=== PATIENT | female | born 1945 | race Caucasian/White ===

== ENCOUNTER 2018-01-25 09:09 | Inpatient (IN) ==
--- NOTE | 2018-01-25 09:19 | Emergency Department Note ---
Disposition Clinical Impression: Pneumonia, UTI (urinary tract infection) Disposition: Admitted As Inpatient Condition: Good Reasons to Return/Additional Instructions: Your blood pressure was normal today but please follow-up with your primary care provider for periodic rechecks General Adult HPI - General Chief complaint: ED General Medical Stated complaint: coughing and gagging Time Seen by Provider: 01/25/18 09:10 Source: EMS Mode of arrival: ambulatory Limitations: physical limitation Nursing Notes Reviewed: Yes Vital Signs Reviewed: Yes - History of Present Illness HPI Narrative: pt with reported coughing and gagging this Am. No report of fever, vomiting or other complaints. 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 Pain Scale: 0 Consistency: intermittent Improves with: nothing Worsens with: nothing - Related Data Home Medications Medication Instructions Recorded Confirmed Aspirin [Lo-Dose Aspirin EC] 81 mg PO DAILY 01/25/18 01/25/18 Atorvastatin [Lipitor] 40 mg PO HS 01/25/18 01/25/18 Clopidogrel [Plavix] 75 mg PO DAILY 01/25/18 01/25/18 Lactulose [Enulose] 20 gm PO DAILY 01/25/18 01/25/18 Oxybutynin [Ditropan] 5 mg PO BID 01/25/18 01/25/18 PHENobarbital [Phenobarbital] 81 mg PO DAILY 01/25/18 01/25/18 raNITIdine HCl [Zantac] 150 mg PO DAILY 01/25/18 01/25/18 Allergies Allergy/AdvReac Type Severity Reaction Status Date / Time Cephalosporins Allergy Hives Verified 01/25/18 09:11 Clofexamide Allergy Hives Verified 01/25/18 09:11 codeine Allergy Hives Verified 01/25/18 09:11 phenytoin Allergy Hives Verified 01/25/18 09:11 propoxyphene Allergy Hives Verified 01/25/18 09:11 Limitations: ROS unobtainable due to patients medical condition ([facility] staff reported coughing and gagging and wheezing today.) Past Medical History - Past Medical History Source: nursing notes reviewed Physical Exam - General Limitations: physical limitation General appearance: alert - Head Head exam: atraumatic, normocephalic - Eye Eye exam: Present: normal appearance, PERRL, EOMI - ENT ENT exam: normal oropharynx, other (Dry mucous membranes) - Neck Neck exam: Present: normal inspection, full ROM, trachea midline - Chest Chest inspection: Present: normal inspection, symmetric chest wall rise - Respiratory Respiratory exam: Present: normal lung sounds bilaterally - Cardiovascular Cardiovascular exam: Present: regular rate, normal rhythm, normal heart sounds - Abdominal Exam Abdominal exam: Present: soft, Non-Tender. Absent: tenderness, distention, guarding, rebound, rigidity - Extremities Exam Extremities exam: Present: normal inspection, full ROM, other (poor turgor. heel protectors in place appears to have extermity contractures as well). Absent: tenderness, pedal edema - Back Exam Back exam: Present: normal inspection - Neurological Exam Neurological exam: Present: alert - Skin Skin exam: Present: warm, dry, intact, other (poor turgor) Medical Decision Making - [facility] Narrative Medical decision making narrative: Case was discussed with Dr. Cardona who graciously accepted admission of the hospital - Lab Data Lab results reviewed: Yes I reviewed the patient's lab results. - Radiology Data Radiology results reviewed: Yes I reviewed the patient's radiology results.
[2018-01-25] MEDS ORDERED: 0.9 % Sodium Chloride 1,000 ML ONE (09:26)
[2018-01-25] MEDS ORDERED: 0.9 % Sodium Chloride 500 ML IVC ONE (09:27)
[2018-01-25 09:29] LABS: Bilirubin,Urine Negative (Negative); Blood,Urine Small (Negative); Clarity,Urine Cloudy (Clear); Color,Urine Yellow (Yellow); Glucose,Urine (UA) Normal (Normal); Ketones,Urine Trace mg/dL (Negative); Leukocyte Esterase,Urine Moderate (Negative); Nitrite,Urine Positive (Negative); PH,Urine 5.5 pH Units (5.0-8.0); Protein,Urine 100 mg/dL (Neg-Trace); Specific Gravity,Urine >= 1.030 (1.010-1.025); Urobilinogen,Urine Normal (Normal)
[2018-01-25 09:37] LABS: Basophils % 0.2 %; Eosinophils # 0.2 K/mcL (0.0-0.6); Eosinophils % 1.2 %; Hemoglobin 12.5 g/dL (11.5-15.4); Immature Granulocytes % 0.7 % (0-4); Lymphocytes # 0.7 K/mcL (0.6-4.6); Lymphocytes % 3.3 %; Mean Corpuscular HGB Conc 32.1 g/dL (31.6-35.5); Mean Corpuscular Hemoglobin 31.6 pg (28.0-33.3); Mean Corpuscular Volume 98.5 fL (83.0-100.0); Monocytes # 0.3 K/mcL (0.0-1.3); Monocytes % 1.6 %; Neutrophils # 18.6 K/mcL (1.6-8.9); Platelet Count 311 K/mcL (140-400); Red Blood Count 3.96 M/mcL (3.82-4.97); Red Cell Distribution Width 15.1 % (11.5-14.5)
[2018-01-25 09:38] LABS: Bacteria,Urine Many per hpf (None-Few); Calcium Oxalate Crystals,Urine Present; Granular Casts,Urine Few per lpf (None Seen); Mucus,Urine Few (Few); RBC,Urine 15-30 per hpf (0-3); Renal Epithelial Cells,Urine Many per hpf (None-Few); Squamous Epithelial Cell,Urine Many per lpf (None-Few); WBC,Urine TNTC per hpf (0-3)
[2018-01-25] MEDS ORDERED: Levofloxacin 750 MG/150 ML 750 MG/150 ML BAG IVPB ONE (09:49)
[2018-01-25 09:53] LABS: Calcium 9.3 mg/dL (8.6-10.3); Potassium 3.1 mEq/L (3.5-5.1)
[2018-01-25] MEDS ORDERED: Naloxone 0.4 MG/ML INJ IVP PRN (10:21)
[2018-01-25] MEDS ORDERED: 0.9 % Sodium Chloride 1,000 ML IVC SCH (10:30)
--- NOTE | 2018-01-25 16:51 | Internal Med History&Physical ---
Date of Encounter: 01/25/18 Time of Encounter: 16:25 Assessment and Plan (1) Severe sepsis Current visit: Yes Status: Acute Presumably from UTI and/or pneumonia. Pressure sores do not visually appear significantly infected. She was given IV Levaquin in emergency room. Will recheck labs in a.m. (2) Acute renal failure Current visit: Yes Status: Acute Suspect secondary to dehydration. IV fluids have been ordered. Repeat labs will be done in a.m. Qualifiers: Acute renal failure type: unspecified Qualified Code(s): N17.9 - Acute kidney failure, unspecified (3) Hypokalemia Current visit: Yes Status: Acute Supplemental potassium has been ordered. Recheck labs in a.m. (4) Pneumonia Current visit: Yes Status: Acute Levaquin was given in emergency room. Reassess in a.m. Qualifiers: Pneumonia type: due to unspecified organism Laterality: right Lung location: lower lobe of lung Qualified Code(s): J18.1 - Lobar pneumonia, unspecified organism (5) UTI (urinary tract infection) Current visit: Yes Status: Acute She has been given Levaquin as per above. Will continue this and await urine culture report. Qualifiers: Urinary tract infection type: site unspecified Hematuria presence: with hematuria Qualified Code(s): N39.0 - Urinary tract infection, site not specified; R31.9 - Hematuria, unspecified (6) Hyperglycemia Current visit: Yes Status: Acute Significance uncertain since nonfasting. Will check hemoglobin A1c in a.m. (7) Pressure sore of left ischium, stage 3 Current visit: Yes Status: Acute Will use Santyl and gentamicin (8) Pressure ulcer of coccygeal region, stage 3 Current visit: Yes Status: Acute Will use Santyl and gentamicin Internal Medicine - H&P: HPI Chief complaint: Coughing and gagging Admitted From: Emergency Dept Plans for Post Hospital Care: Home History of present illness: Ms. Mcclure is a 72 year old female who was [facility] a local [facility] after staff reported she had coughing and gagging. There was no report of fever or vomiting. She was evaluated in emergency room and found to have acute renal failure, hypokalemia, and leukocytosis with left shift. Chest x-ray showed medial right lung base opacity consistent with pneumonia. She was admitted to [facility] floor for ongoing care needs. She is nonverbal and cannot give any history. Past Med Surg Social Fam HX - Past Medical History Medical history: cardiomyopathy, GERD, seizures, other Additional medical history: chronic pain, carotid stenosis, constipation, mild id, bladder spasms, hx subdural hematoma, - Past Surgical History Additional surgical history: right femur fx, nasal sx, - Social History Smoking Status: Never smoker Smokeless Tobacco Status: No Alcohol use: none Drug use: none Internal Medicine - H&P: Meds Aspirin [Lo-Dose Aspirin EC] 81 mg PO DAILY 01/25/18 [History] Atorvastatin [Lipitor] 40 mg PO HS 01/25/18 [History] Clopidogrel [Plavix] 75 mg PO DAILY 01/25/18 [History] Lactulose [Enulose] 20 gm PO DAILY 01/25/18 [History] Oxybutynin [Ditropan] 5 mg PO BID 01/25/18 [History] PHENobarbital [Phenobarbital] 81 mg PO DAILY 01/25/18 [History] raNITIdine HCl [Zantac] 150 mg PO DAILY 01/25/18 [History] 3 Allergy/AdvReac Type Severity Reaction Status Date / Time Cephalosporins Allergy Hives Verified 01/25/18 09:11 Clofexamide Allergy Hives Verified 01/25/18 09:11 codeine Allergy Hives Verified 01/25/18 09:11 phenytoin Allergy Hives Verified 01/25/18 09:11 propoxyphene Allergy Hives Verified 01/25/18 09:11 All Systems PM: A 10-system review of systems was performed and is negative for pertinent findings except as documented above in the HPI. Review of systems: Unobtainable from the patient since she has significant MRDD and is nonverbal. - Constitutional Vitals: Temp Pulse Resp BP Pulse Ox 98.4 F 109 18 115/64 96 01/25/18 09:12 01/25/18 12:05 01/25/18 12:05 01/25/18 12:05 01/25/18 12:05 Exam: Gen.: She is a frail female lying in bed who appears slightly dyspneic and agitated. HEENT: Head appears atraumatic and normocephalic. Eyes: Her gaze is conjugate. EOMI is noted random observation. There is no scleral icterus. Mouth: Mucosa is dry. She appears edentulous. Neck: There is no thyromegaly or adenopathy noted. Heart: Regular without murmurs gallops or ectopics Lungs: She has diminished breath sounds diffusely but no wheezes or crackles are heard. Abdomen: Bowel sounds are diminished. Abdomen is nontender to palpation. Extremities: She is wearing heel protectors and thick socks which I did not remove. 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 There is no edema of her lower legs. Neurologic: Mental status: She does not respond meaningfully to voice or light touch. Cranial nerves: EOMI noted from random observation. She does not make significant facial movements or follow commands otherwise. Motor: Her left arm appears to have flexion contracture at the elbow and wrist. She moves her right arm well randomly. No further neurologic testing is attempted. Skin: She has a ~12 mm stage III ulcer on her left ischial area and ~ 12 mm stage ulcer over her coccyx. There is minimal exudate seen in the ulcers with no significant surrounding erythema. There are scars from presumed previously healed pressure sores on left and right pelvic area pressure points. Skin is warm and dry otherwise. Internal Med - H&P Results - Labs CBC & Chem 7: 01/25/18 09:31 01/25/18 09:31
[2018-01-25] MEDS: 0.45 % Sodium Chloride w/KCl 20 MEQ/1,000 ML MLS IVC SCH (17:35)
[2018-01-26] MEDS: 0.45 % Sodium Chloride w/KCl 20 MEQ/1,000 ML MLS IVC SCH ×3 (03:47→23:32)
[2018-01-26] MEDS: *HR* Enoxaparin 40 MG/0.4 ML SYRINGE SQ SCH (06:34)
[2018-01-26 06:49] LABS: Basophils % 0.1 %; Eosinophils # 0.4 K/mcL (0.0-0.6); Hemoglobin 10.1 g/dL (11.5-15.4); Immature Granulocytes % 0.5 % (0-4); Lymphocytes # 0.7 K/mcL (0.6-4.6); Lymphocytes % 5.3 %; Mean Corpuscular HGB Conc 32.6 g/dL (31.6-35.5); Mean Corpuscular Volume 95.1 fL (83.0-100.0); Mean Platelet Volume 10.9 fL (9.4-12.4); Monocytes # 0.3 K/mcL (0.0-1.3); Neutrophils # 11.4 K/mcL (1.6-8.9); Platelet Count 237 K/mcL (140-400); Red Blood Count 3.26 M/mcL (3.82-4.97); Red Cell Distribution Width 14.9 % (11.5-14.5); Segmented Neutrophils % 89.1 %
[2018-01-26] MEDS: Gentamicin Oint 15 GM TUBE TP SCH ×2 (07:01→10:00)
[2018-01-26 07:31] LABS: BUN/Creatinine Ratio 53 (6-26); Blood Urea Nitrogen 43 mg/dL (8-23); Calcium 8.7 mg/dL (8.6-10.3); Carbon Dioxide 21 mEq/L (23-29); Chloride 108 mEq/L (98-107); Glucose 90 mg/dL (70-105); Osmolality,Calculated 290 (280-300); Potassium 3.9 mEq/L (3.5-5.1); Sodium 135 mEq/L (136-145); eGFR For African Americans > 60 (> 60); eGFR For Non-African Americans > 60 (> 60)
--- NOTE | 2018-01-26 10:54 | Internal Med Progress Note ---
Date of Encounter: 01/26/18 Time of Encounter: 10:45 - Assessment and plan (1) Severe sepsis Current Visit: Yes Status: Acute Assessment and plan: January 26. Improved. Continue antibiotics and lactobacillus. Anticipate discharge tomorrow if stable. (2) Acute renal failure Current Visit: Yes Status: Acute Assessment and plan: January 26. Resolving. Creatinine decreased to 0.8 with estimated GFR greater than 60. Continue IV fluids. Qualifiers: Acute renal failure type: unspecified Qualified Code(s): N17.9 - Acute kidney failure, unspecified (3) Hypokalemia Current Visit: Yes Status: Acute Assessment and plan: January 26. Resolved. Continue present regimen. (4) Pneumonia Current Visit: Yes Status: Acute Assessment and plan: January 26. Continue antibiotics and lactobacillus. Qualifiers: Pneumonia type: due to unspecified organism Laterality: right Lung location: lower lobe of lung Qualified Code(s): J18.1 - Lobar pneumonia, unspecified organism (5) UTI (urinary tract infection) Current Visit: Yes Status: Acute Assessment and plan: January 26. Urine culture report from 01/23/2018 reviewed. Escherichia coli shows resistance to Levaquin. Will continue Levaquin for pneumonia and add Septra for UTI. Qualifiers: Urinary tract infection type: site unspecified Hematuria presence: with hematuria Qualified Code(s): N39.0 - Urinary tract infection, site not specified; R31.9 - Hematuria, unspecified (6) Hyperglycemia Current Visit: Yes Status: Acute Assessment and plan: January 26. Hemoglobin A1c pending. FBS normal today at 90 (7) Pressure sore of left ischium, stage 3 Current Visit: Yes Status: Acute Assessment and plan: January 26. Continue Santyl and gentamicin. (8) Pressure ulcer of coccygeal region, stage 3 Current Visit: Yes Status: Acute Assessment and plan: January 26. Continue Santyl and gentamicin. (9) Anemia Current Visit: Yes Status: Acute Assessment and plan: January 26. Hemoglobin decreased to 10.1. Will order anemia testing in a.m. Qualifiers: Anemia type: unspecified type Qualified Code(s): D64.9 - Anemia, unspecified - Subjective Interval history: January 26. No new problems have arisen. - Constitutional Vitals: Temp Pulse Resp BP Pulse Ox 97.6 F 103 19 155/74 96 01/26/18 05:31 01/26/18 05:31 01/26/18 05:31 01/26/18 05:31 01/26/18 05:31 Exam: She is resting comfortably in bed. She is being fed by a worker from the [facility]. I reviewed her medications and lab results. Internal Medicine: Result - Labs CBC & Chem 7: 01/26/18 06:39 01/26/18 06:39 Labs: Short CBC 01/26/18 Range/Units 06:39 WBC 12.8 H (4.3-11.1) K/mcL Hgb 10.1 L D (11.5-15.4) g/dL Hct 31.0 L (35.3-44.9) % Plt Count 237 (140-400) K/mcL Neutrophils # 11.4 H (1.6-8.9) K/mcL BMP 01/26/18 06:39 Sodium 135 L Potassium 3.9 D Chloride 108 H Carbon Dioxide 21 L BUN 43 H Creatinine 0.81 Glucose 90 Calcium 8.7 - Impressions Impressions Chest X-Ray 01/26/18 08:12 IMPRESSION: Stable right basilar opacity which may represent a developing infiltrate. Follow-up to resolution is recommended. D/ / Morelia Ziegler MD / Morelia Ziegler MD Interpreting Provider: Morelia Ziegler MD Consult Discharge Plan - Plan Additional Instructions: Your blood pressure was normal today but please follow-up with your primary care provider for periodic rechecks Referrals: Elissa Carpio MD [Primary Care Provider] - 1 week
[2018-01-26] MEDS ORDERED: Levofloxacin 500 MG/100 ML 500 MG/100 ML BAG IVPB SCH (11:00)
[2018-01-26 11:06] LABS: Estimated Average Glucose 108 mg/dl; Hemoglobin A1C 5.4 %
[2018-01-26] MEDS: Sulfamethoxazole/Trimeth DS 1 EACH TABLET PO SCH ×2 (12:56→20:13)
[2018-01-26] MEDS: Lactobacillus 1 EACH CAP.SPRINK PO SCH (20:13)
[2018-01-27 05:48] LABS: Basophils % 0.1 %; Eosinophils # 0.2 K/mcL (0.0-0.6); Eosinophils % 2.5 %; Hematocrit 34.2 % (35.3-44.9); Hemoglobin 11.4 g/dL (11.5-15.4); Immature Granulocytes % 0.4 % (0-4); Lymphocytes # 1.4 K/mcL (0.6-4.6); Lymphocytes % 17.1 %; Mean Corpuscular HGB Conc 33.3 g/dL (31.6-35.5); Mean Corpuscular Hemoglobin 30.8 pg (28.0-33.3); Mean Corpuscular Volume 92.4 fL (83.0-100.0); Mean Platelet Volume 11.2 fL (9.4-12.4); Monocytes # 0.3 K/mcL (0.0-1.3); Monocytes % 4.1 %; Platelet Count 282 K/mcL (140-400); Red Cell Distribution Width 14.3 % (11.5-14.5); Segmented Neutrophils % 75.8 %
[2018-01-27] MEDS: *HR* Enoxaparin 40 MG/0.4 ML SYRINGE SQ SCH (06:01)
[2018-01-27 06:06] LABS: BUN/Creatinine Ratio 39 (6-26); Blood Urea Nitrogen 24 mg/dL (8-23); Carbon Dioxide 21 mEq/L (23-29); Chloride 100 mEq/L (98-107); Glucose 90 mg/dL (70-105); Osmolality,Calculated 270 (280-300); Potassium 3.9 mEq/L (3.5-5.1); Sodium 128 mEq/L (136-145); eGFR For African Americans > 60 (> 60); eGFR For Non-African Americans > 60 (> 60)
[2018-01-27 07:01] VITALS: BP 159/59
[2018-01-27] MEDS: Sulfamethoxazole/Trimeth DS 1 EACH TABLET PO SCH (07:58)
[2018-01-27] MEDS: Lactobacillus 1 EACH CAP.SPRINK PO SCH (07:58)
[2018-01-27 09:24] LABS: % Iron Saturation 21 % (15-50); Ferritin 112 ng/ml (10-120); Iron 64 mcg/dL (50-170); Transferrin 215 mg/dL (203-362)
--- NOTE | 2018-01-27 09:38 | Discharge Summary ---
Orders not resulted at time of discharge: Pending orders 01/27/18 05:23 Folate AM 0400 Vitamin B12 AM 0400 Date of Encounter: 01/27/18 Time of Encounter: 09:25 - Discharge Diagnosis (1) Severe sepsis Priority: Primary Status: Resolved (2) Acute renal failure Priority: Secondary Status: Resolved Qualifiers: Acute renal failure type: unspecified Qualified Code(s): N17.9 - Acute kidney failure, unspecified (3) Hypokalemia Priority: Secondary Status: Resolved (4) Pneumonia Priority: Secondary Status: Acute Qualifiers: Pneumonia type: due to unspecified organism Laterality: right Lung location: lower lobe of lung Qualified Code(s): J18.1 - Lobar pneumonia, unspecified organism (5) UTI (urinary tract infection) Priority: Secondary Status: Acute Qualifiers: Urinary tract infection type: site unspecified Hematuria presence: with hematuria Qualified Code(s): N39.0 - Urinary tract infection, site not specified; R31.9 - Hematuria, unspecified (6) Hyperglycemia Priority: Secondary Status: Resolved (7) Pressure sore of left ischium, stage 3 Priority: Secondary Status: Chronic (8) Pressure ulcer of coccygeal region, stage 3 Priority: Secondary Status: Chronic (9) Anemia Priority: Secondary Status: Acute Qualifiers: Anemia type: unspecified type Qualified Code(s): D64.9 - Anemia, unspecified Hospital course: Ms. Mcclure is a 72 year old female who was sent to emergency room from a local [facility] after staff reported she had coughing and gagging. There was no report of fever or vomiting. She was evaluated in emergency room and found to have acute renal failure, hypokalemia, and leukocytosis with left shift. Chest x-ray showed medial right lung base opacity consistent with pneumonia. She was admitted to [facility] floor for ongoing care needs. Initial orders were written by the emergency room physician. I saw her on January 25 and performed a history and physical. She was started on IV Levaquin. I added lactobacillus. Septra DS was added on January 26 for added spectrum coverage. Urine culture returned showing Morganella with sensitivity to Septra. She will continue with antibiotic and probiotic for 3 additional days for UTI and pneumonia. She had clinical improvement with WBC normalizing to 8.0 and resolution of left shift by time of discharge. She remained afebrile. Hemoglobin decrease to 10.1 on 01/26/2018. Anemia testing showed iron 64, transferrin saturation 21%, transferrin 215, and ferritin 112. B12 and folate level are pending at time of discharge. She was treated with topical Santyl and gentamicin for her pressure sores. This will be continued at discharge. A zinc level is pending at time of discharge. Vitamin D level returned slightly low at 24. Her PCP can determine further treatment needs Hemoglobin A1c returns satisfactory at 5.4%. On January 27 she was stable for discharge back to the [facility] where she will follow with Dr. Carpio. I talked to a caregiver from the [facility] about possible G-tube placement. Further interventions can be determined by her legal guardian and PCP. - Time Spent with Patient Total time spent providing and/or coordinating discharge services: - Discharge Medications Prescriptions: Lactobacillus [Culturelle] 1 each PO BID #6 cap.sprink levoFLOXacin [Levaquin] 500 mg PO DAILY #3 tablet Sulfamethoxazole/Trimeth DS [Bactrim Ds] 1 each PO BID #6 tablet Home Medications: Atorvastatin [Lipitor] 40 mg PO HS 01/25/18 [History] Clopidogrel [Plavix] 75 mg PO DAILY 01/25/18 [History] Lactulose [Enulose] 20 gm PO DAILY 01/25/18 [History] PHENobarbital [Phenobarbital] 81 mg PO DAILY 01/25/18 [History] Aspirin [Lo-Dose Aspirin EC] 81 mg PO Q48H #0 01/27/18 [Rx] Collagenase Oint [Santyl] 1 appl TP DAILY tube 01/27/18 [Rx] Gentamicin Oint [Garamycin] 1 appl TP DAILY tube 01/27/18 [Rx] Lactobacillus [Culturelle] 1 each PO BID #6 cap.sprink 01/27/18 [Rx] Sulfamethoxazole/Trimeth DS [Bactrim Ds] 1 each PO BID #6 tablet 01/27/18 [Rx] levoFLOXacin [Levaquin] 500 mg PO DAILY #3 tablet 01/27/18 [Rx] Allergies/Adverse Reactions: 3 Allergy/AdvReac Type Severity Reaction Status Date / Time Cephalosporins Allergy Hives Verified 01/25/18 09:11 Clofexamide Allergy Hives Verified 01/25/18 09:11 codeine Allergy Hives Verified 05/30/18 09:11 phenytoin Allergy Hives Verified 01/25/18 09:11 propoxyphene Allergy Hives Verified 01/25/18 09:11 Date of admission: 01/25/18 17:11 Primary care physician: Elissa Carpio Consults: 01/25/18 19:41 Consult to Sidewalk Repairer [CONS] Routine Reason for SW Consult: Discharge Planning - Constitutional Vitals: Temp Pulse Resp BP Pulse Ox 99.2 F 88 18 159/59 98 01/27/18 06:59 01/27/18 06:59 01/27/18 06:59 01/27/18 06:59 01/27/18 06:59 - Patient Status Disposition: Home, Self-Care Condition: Good Overall status at discharge: patient is progressing back to baseline - Discharge Instructions Follow Up With: Elissa Carpio MD [Primary Care Provider] - 1 week Additional Instructions: Your blood pressure was normal today but please follow-up with your primary care provider for periodic rechecks - Diet and Activity Activity: resume usual activities as tolerated Diet: advance to your usual diet
[2018-01-27 09:40] LABS: Folate 13.1 ng/mL (3.0-16.0)
== END 2018-01-27 10:45 | disposition home or self-care (01) | DRG 871 ==
LOC: INPPIK 09:09 → EMEROOPIK 09:09 → INPPIK 11:20
PROVIDERS: ADMIT Internal Medicine; ATTEND Internal Medicine